=== PATIENT | male | born 1975 | race Caucasian/White ===

== ENCOUNTER 2021-10-22 09:50 | Emergency (ER) | payer BC ==
[2021-10-22 10:56] LABS: CORONAVIRUS COVID-19 NAA POSITIVE (NEGATIVE)
[2021-10-22] MEDS ORDERED: Acetaminophen 500 MG Tab PO ONE (12:13)
[2021-10-22] MEDS ORDERED: Acetaminophen 500 MG Tab ONE (12:14)
== END 2021-10-22 12:35 | disposition home or self-care (01) ==
LOC: KA.ED 09:50
DX: U07.1 COVID-19 (principal); D72.819 Decreased white blood cell count, unspecified; Z79.82 Long term (current) use of aspirin; Z79.899 Other long term (current) drug therapy
CPT/HCPCS: 0240U; 36415; 80048; 81001; 85025; 99283; 99284; A9270-GY; Q3014